=== PATIENT | female | born 1990 | race Caucasian/White ===

== ENCOUNTER 2017-04-22 15:23 | Observation (INO) | payer MEDICAID ==
[~2017-04-22] VITALS: Ht 154.9 cm; Wt 75.3 kg
[2017-04-22] MEDS ORDERED: PREN-88 PO (16:34)
== END 2017-04-22 17:25 | disposition home or self-care (01) ==
LOC: L&D 15:23
PROVIDERS: ADMIT Obstetrics & Gynecology; ATTEND Obstetrics & Gynecology
DX: O26.893 Other specified pregnancy related conditions, third trimester (principal); R10.9 Unspecified abdominal pain; M54.9 Dorsalgia, unspecified; O48.0 Post-term pregnancy; Z3A.40 40 weeks gestation of pregnancy
CPT/HCPCS: 99281; G0378

== ENCOUNTER 2017-04-30 13:10 | Observation (INO) | payer MEDICAID ==
[~2017-04-30] VITALS: Ht 157.5 cm; Wt 75.7 kg
[~2017-04-30 13:10] MED LIST: PREN-88 PO
== END 2017-04-30 14:45 | disposition home IV services (08) ==
LOC: L&D 13:10
PROVIDERS: ADMIT Obstetrics & Gynecology; ATTEND Obstetrics & Gynecology
DX: O26.893 Other specified pregnancy related conditions, third trimester (principal); N89.8 Other specified noninflammatory disorders of vagina; Z3A.40 40 weeks gestation of pregnancy
CPT/HCPCS: 99281; G0378

== ENCOUNTER 2017-05-01 07:30 | Inpatient (IN) | payer MEDICAID ==
[~2017-05-01] VITALS: Ht 154.9 cm; Wt 75.7 kg
[2017-05-01] MEDS ORDERED: DEXT 5%/LR + PITOCIN 20UNITS/L 1,000 ML IV SCH (08:07)
[2017-05-01] MEDS ORDERED: CARBOPROST TROMETHAMINE 250 MCG/ML AMPUL IM PRN (08:15)
[2017-05-01] MEDS ORDERED: LIDOCAINE HCL 1% 20ML VIAL (Pyxis) INJ INFIL SCH (08:15)
[2017-05-01] MEDS ORDERED: MISOPROSTOL 200MCG TABLET VG SCH (08:15)
[2017-05-01] MEDS ORDERED: METHYLERGONOVINE MALEATE 0.2 MG/ML IM PRN (08:15)
[2017-05-01] MEDS ORDERED: NALOXONE HCL 0.4 MG/ML 1ML VIAL IM PRN (08:15)
[2017-05-01] MEDS: LACTATED RINGERS 1,000 ML IV SCH ×3 (08:41→13:53)
[2017-05-01] MEDS: BUTORPHANOL TARTRATE 2 MG/ML VIAL IV PRN ×2 (08:44→10:49)
[2017-05-01 08:53] LABS: BASOPHILS % 0.2 % (0.0-2.0); EOSINOPHILS % 0.2 % (0.0-5.0); HEMOGLOBIN. 13.9 g/dL (12.0-16.0); LYMPHOCYTES % 8.8 % (20.0-50.0); MEAN CORPUSCULAR HEMOGLOBIN 31.9 pg (28.0-32.0); MEAN CORPUSCULAR VOLUME 91.7 fL (81.0-99.0); MEAN PLATELET VOLUME 9.1 fl (7.4-10.4); MONOCYTES % 3.1 % (2.0-8.0); NEUTROPHILS % 87.7 % (40.0-76.0); PLATELET 217 x1000/uL (130-400); RED BLOOD CELL COUNT 4.36 mill/uL (4.2-5.4); RED CELL DISTRIBUTION WIDTH 13.3 % (11.6-14.6)
[2017-05-01 08:56] LABS: PROTHROMBIN TIME 9.9 sec (9.4-11.6)
[2017-05-01 09:01] LABS: GLUCOSE URINE NEGATIVE (NEGATIVE); KETONES URINE NEGATIVE (NEGATIVE); LEUKOCYTE ESTERASE URINE NEGATIVE (NEGATIVE); NITRITE URINE NEGATIVE (NEGATIVE); OCCULT BLOOD URINE 2+ (NEGATIVE); PROTEIN URINE NEGATIVE (NEGATIVE); SPECIFIC GRAVITY URINE 1.015 (1.005-1.030); UROBILINOGEN URINE 0.2 E.U./dL (0.2-1.0)
[2017-05-01 09:07] LABS: CLARITY URINE CLOUDY (CLEAR); COLOR URINE YELLOW (YELLOW)
[2017-05-01 09:14] LABS: *AMPHETAMINES SCREEN URINE NEGATIVE (NEGATIVE); *BARBITURATES SCREEN URINE NEGATIVE (NEGATIVE); *BENZODIAZEPINES SCREEN URINE NEGATIVE (NEGATIVE); *COCAINE SCREEN URINE NEGATIVE (NEGATIVE); CANNABINOID URINE SCREEN NEGATIVE (NEGATIVE); METHADONE URINE SCREEN NEGATIVE (NEGATIVE); OPIATES URINE SCREEN NEGATIVE (NEGATIVE); PHENCYCLIDINE URINE SCREEN NEGATIVE (NEGATIVE)
[2017-05-01] MEDS ORDERED: TERBUTALINE SULFATE 1MG/ML VIAL SUBCUT SCH (13:00)
[2017-05-01] MEDS ORDERED: FENTANYL CITRATE/PF 50MCG/ML 2ML VIAL ONE (13:21)
[2017-05-01] MEDS ORDERED: BUPIVACAINE HCL/PF 0.25% (2.5MG/ML) 10ML ONE (13:23)
[2017-05-01] MEDS ORDERED: BUPIVACAINE HCL/NS/PF EPIDURAL 100 ML EP ONE (13:23)
[2017-05-01] MEDS ORDERED: DIPHENHYDRAMINE 50MG/ML VIAL IM PRN (14:00)
[2017-05-01] MEDS ORDERED: BUPIVACAINE HCL/NS/PF EPIDURAL 100 ML EP SCH (14:00)
[2017-05-01] MEDS ORDERED: ONDANSETRON HCL 4MG/2ML VIAL IV PRN (14:00)
[2017-05-01 14:32] LABS: RUBELLA IGG 9.1 IU/mL (4.99-10)
[2017-05-01 14:33] LABS: HEPATITIS B SURFACE ANTIGEN NEGATIVE
[2017-05-01] MEDS ORDERED: SODIUM BICARBONATE 4% (2.4MEQ) 5ML VIAL IV ONE (17:56)
[2017-05-01] MEDS ORDERED: SODIUM CHLORIDE 0.9% 10ML VIAL ONE (17:59)
[2017-05-01] MEDS ORDERED: EPHEDRINE SULFATE 50MG/ML VIAL ONE (17:59)
[2017-05-01] MEDS ORDERED: OXYTOCIN 10 UNITS/ML 1ML ONE (17:59)
[2017-05-01] MEDS ORDERED: DEXAMETHASONE 4MG/ML 1ML VIAL ONE (17:59)
[2017-05-01] MEDS ORDERED: PHENYLEPHRINE HCL 10 MG/ML 1ML (IV VIAL) IV ONE (17:59)
[2017-05-01] MEDS ORDERED: CEFAZOLIN SODIUM 1000MG/VIAL ONE (17:59)
[2017-05-01] MEDS ORDERED: ONDANSETRON HCL 4MG/2ML VIAL ONE (17:59)
[2017-05-01] MEDS ORDERED: MIDAZOLAM HCL 2 MG/2 ML VIAL ONE (18:14)
[2017-05-01] MEDS ORDERED: MORPHINE SULFATE/PF 1MG/ML 10ML AMP ONE (18:14)
[2017-05-01] MEDS ORDERED: NALOXONE HCL 0.4 MG/ML 1ML VIAL IV PRN (19:45)
[2017-05-01] MEDS: KETOROLAC 30MG/ML VIAL IV SCH (20:31)
[2017-05-01] MEDS ORDERED: HYDROCODONE/ACETAMINOPHEN 5/325MG TABLET PO PRN (21:30)
[2017-05-01] MEDS ORDERED: RHO(D) IMMUNE GLOBULIN 300 MCG/SYR IM PRN (21:30)
[2017-05-01] MEDS ORDERED: IBUPROFEN 400MG TABLET PO PRN (21:30)
[2017-05-01] MEDS ORDERED: BISACODYL 10MG SUPP PR PRN (21:30)
[2017-05-01] MEDS ORDERED: HYDROMORPHONE HCL/PF 2MG/ML CPJ IM PRN (21:30)
[2017-05-01] MEDS ORDERED: DEXT 5%/LACTATED RINGERS 1,000 ML IV ONE (22:00)
[2017-05-01] MEDS: DEXT 5%/LR + PITOCIN 20UNITS/L 1,000 ML IV SCH (22:09)
[2017-05-02] MEDS: KETOROLAC 30MG/ML VIAL IV SCH ×2 (06:15→12:11)
[2017-05-02] MEDS: DEXT 5%/LR + PITOCIN 20UNITS/L 1,000 ML IV SCH (06:25)
[2017-05-02 07:17] LABS: BASOPHILS % 0.1 % (0.0-2.0); HEMATOCRIT. 34.4 % (36.0-48.0); HEMOGLOBIN. 12.2 g/dL (12.0-16.0); LYMPHOCYTES % 8.3 % (20.0-50.0); MEAN CORPUSCULAR HEMOGLOBIN 32.2 pg (28.0-32.0); MEAN CORPUSCULAR VOLUME 90.6 fL (81.0-99.0); MEAN PLATELET VOLUME 8.9 fl (7.4-10.4); NEUTROPHILS % 85.6 % (40.0-76.0); PLATELET 163 x1000/uL (130-400); RED BLOOD CELL COUNT 3.79 mill/uL (4.2-5.4); RED CELL DISTRIBUTION WIDTH 13.4 % (11.6-14.6)
[2017-05-02 07:38] VITALS: BP 92/53
[2017-05-02] MEDS: IBUPROFEN 800MG TABLET PO PRN ×2 (15:35→21:46)
[2017-05-02 16:02] VITALS: BP 104/71
[2017-05-02 21:45] VITALS: BP 121/73
[2017-05-03 00:40] VITALS: BP 109/71
[2017-05-03] MEDS: IBUPROFEN 800MG TABLET PO PRN ×2 (07:37→18:47)
[2017-05-03 08:18] VITALS: BP 122/80
[2017-05-03 15:59] VITALS: BP 119/81
[2017-05-03] MEDS ORDERED: TETANUS, DIPHTHERIA, PERTUSSIS VAC/PF 0.5ML (>7YR OLD) IM ONE (18:30)
[2017-05-03 19:30] VITALS: BP 125/86
[2017-05-04 07:55] VITALS: BP 124/87
[2017-05-04 08:33] VITALS: BP 124/87
[2017-05-04] MEDS: IBUPROFEN 800MG TABLET PO PRN (08:33)
== END 2017-05-04 12:00 | disposition home or self-care (01) | DRG 540 ==
LOC: OBSVTOIN 07:30 → L&D 07:30 → 7EST PP/OB 22:25
PROVIDERS: ADMIT Obstetrics & Gynecology; ATTEND Obstetrics & Gynecology
PROC: 10D00Z1 Extraction of Products of Conception, Low, Open Approach (ICD-10-PCS; principal; 2017-05-01)
DX: O32.1XX0 Maternal care for breech presentation, not applicable or unspecified (principal); Z37.0 Single live birth; Z3A.40 40 weeks gestation of pregnancy
CPT/HCPCS: 36415; 76815; 80305; 81001; 85025; 85610; 85730; 86592; 86703; 86762; 86850; 86900; 87340; 88307; 90715; 99281; A4216; J0171; J0595; J0690; J1100; J1885; J2250; J2274; J2370; J2405; J2590; J3010; J3490; J7120; A4315